=== PATIENT | female | born 1975 | race Caucasian/White ===

== ENCOUNTER 2018-09-22 07:54 | Emergency (ER) | payer BC ==
[~2018-09-22] VITALS: Ht 167.6 cm; Wt 77.4 kg
[2018-09-22 08:01] VITALS: Ht 167.6 cm; Wt 77.4 kg
[2018-09-22] MEDS ORDERED: FUROSEMIDE20 MG PO (08:05)
[2018-09-22] MEDS ORDERED: TOPROL XL25 MG PO (08:05)
[2018-09-22] MEDS ORDERED: ANTIBIOTIC (08:05)
[2018-09-22 08:32] LABS: BASOPHILS 0 % (0-2); EOSINOPHILS 0.6 % (0-7); HEMATOCRIT 41.7 % (36.0-48.0); IMMATURE GRANULOCYTES 0.2 % (0-5); LYMPHOCYTES 10.1 % (15-50); MCH 30.5 pg (26.0-34.0); MCHC 33.6 g/dL (31.0-37.0); MCV 90.8 fL (80.0-100.0); MEAN PLATELET VOLUME 9.3 fL (7.4-10.4); MONOCYTES 3.7 % (2-11); NEUTROPHILS 85.4 % (40-80); PLATELET COUNT 355 10x3/uL (130-400); RBC 4.59 10x6/uL (4.00-5.40); RDW 13.5 % (11.5-14.5); WBC 8.7 10x3/uL (4.8-10.8)
[2018-09-22 08:40] LABS: ALBUMIN 3.8 g/dL (3.4-5.0); ALKALINE PHOSPHATASE 91 U/L (46-116); ALT (SGPT) 29 U/L (10-68); BILIRUBIN - TOTAL 0.37 mg/dL (0.2-1.3); CALC OSMOLALITY 275 mosm/kg (275-300); CALCIUM 8.3 mg/dL (8.5-10.1); CARBON DIOXIDE 25.1 mmol/L (21.0-32.0); CHLORIDE - SERUM 102 mmol/L (98-107); CREATININE - SERUM 0.6 mg/dL (0.6-1.3); GLUCOSE 103 mg/dL (74-106); POTASSIUM - SERUM 3.7 mmol/L (3.5-5.1); PROTEIN - SERUM 8.2 g/dL (6.4-8.2); SODIUM 138 mmol/L (136-145); UREA NITROGEN 13 mg/dL (7-18); eGFR NON AFRICAN AMERICAN > 90 mL/min (90-120)
[2018-09-22 08:44] LABS: AMYLASE - SERUM 46 U/L (25-115); LIPASE 138 U/L (73-393)
[2018-09-22 08:47] LABS: TROPONIN-I < 0.017 ng/mL (0.000-0.060)
[2018-09-22 09:46] LABS: APPEARANCE HAZY (CLEAR); BILIRUBIN NEGATIVE (NEGATIVE); COLOR YELLOW (YELLOW); GLUCOSE NEGATIVE (NEGATIVE); KETONE NEGATIVE (NEGATIVE); NITRITE NEGATIVE (NEGATIVE); PROTEIN NEGATIVE (NEGATIVE); SPECIFIC GRAVITY 1.025 (1.005-1.020); UROBILINOGEN NORMAL (NORMAL)
[2018-09-22 09:47] LABS: BACTERIA FEW /hpf (NONE SEEN); EPITHELIAL CELLS 0-5 /hpf (0-5); MUCUS <1+ /lpf (NONE SEEN); RED CELLS - URINE OCC /hpf (0-5)
[2018-09-22] MEDS ORDERED: FLAGYL500 MG PO (11:58)
[2018-09-22] MEDS ORDERED: LEVAQUIN750 MG PO (11:58)
[2018-09-22] MEDS ORDERED: FLORASTOR250 MG PO (11:58)
[2018-09-22] MEDS ORDERED: ZOFRAN ODT4 MG/UDTAB PO (11:58)
[2018-09-22 12:15] VITALS: BP 128/83
== END 2018-09-22 12:15 | disposition home or self-care (01) ==
LOC: D.ER 07:54
PROVIDERS: Family Medicine
DX: K52.9 Noninfective gastroenteritis and colitis, unspecified (principal)

== ENCOUNTER 2018-11-30 08:02 | Emergency (ER) | payer MEDICAID ==
[~2018-11-30] VITALS: Ht 167.6 cm; Wt 77.3 kg
[~2018-11-30 08:02] MED LIST: ANTIBIOTIC; FLAGYL500 MG PO; FLORASTOR250 MG PO; FUROSEMIDE20 MG PO; LEVAQUIN750 MG PO; TOPROL XL25 MG PO; ZOFRAN ODT4 MG/UDTAB PO
[2018-11-30 08:08] VITALS: BP 162/76; Ht 167.6 cm; Wt 77.3 kg
[2018-11-30] MEDS ORDERED: CYCLOBENZAPRINE10 MG PO (08:27)
[2018-11-30] MEDS ORDERED: ACETAMINOPHEN500 M1 PO (08:27)
[2018-11-30] MEDS ORDERED: IBUPROFEN800 MG PO (08:27)
== END 2018-11-30 09:12 | disposition home or self-care (01) ==
LOC: D.ER 08:02
DX: S46.002A Unspecified injury of muscle(s) and tendon(s) of the rotator cuff of left shoulder, initial encounter (principal); Y93.H2 Activity, gardening and landscaping; Y92.017 Garden or yard in single-family (private) house as the place of occurrence of the external cause

== ENCOUNTER → 2018-12-10 12:59 | Outpatient (CLI) | payer MEDICAID ==
[2018-11-30 08:08] VITALS: BMI 27.5
[~2018-12-10 12:59] MED LIST changes: +ACETAMINOPHEN500 M1 PO; +CYCLOBENZAPRINE10 MG PO; +IBUPROFEN800 MG PO
--- NOTE | 2018-12-10 14:01 | NUR ---
TIMEOUT AT 1:40 BY KULWINDER PEREZ/DR MEDINA 5 CC [address] 300 CONTRAST WAS USED WITH 0.16 CC MULTIHANCE WITH 5CC NS FOR INJECTION INTO THE LEFT SHOULDER.
== END | disposition home or self-care (01) ==
LOC: D.RAD 12:59
PROVIDERS: ATTEND Orthopaedic Surgery
DX: S49.90XA Unspecified injury of shoulder and upper arm, unspecified arm, initial encounter (principal)

== ENCOUNTER 2020-08-23 15:49 | Emergency (ER) | payer OTHER ==
[~2020-08-23] VITALS: Ht 170.2 cm; Wt 72.7 kg
[2020-08-23 16:05] VITALS: BP 170/81; Ht 170.2 cm; Wt 72.7 kg
[2020-08-23] MEDS ORDERED: CYCLOBENZAPRINE10 MG PO (17:31)
== END 2020-08-23 18:38 | disposition home or self-care (01) ==
LOC: D.ER 15:49
DX: M62.838 Other muscle spasm (principal); M54.2 Cervicalgia; M54.5 Low back pain; I10 Essential (primary) hypertension; Z72.0 Tobacco use